=== PATIENT | female | born 1990 | race Caucasian/White ===

== ENCOUNTER 2023-11-28 05:35 | Emergency (ER) | payer OTHER ==
--- NOTE | 2023-11-28 05:39 | ERPHSYRPT ---
- History of Present Illness Time Seen by Provider: 11/28/23 05:38 Source: patient Exam Limitations: no limitations Physician History: This is a morbidly obese 33-year-old white female patient has had a dry nonproductive cough for over a month. Patient was seen at [facility] approximately 1 month ago and diagnosed with bronchitis. She received a prescription for albuterol inhaler only. Patient has not had a fever. She only experiences mild, brief shortness of breath during multiple coughing episodes. She denies nausea, vomiting and diarrhea. She denies chest pain. She denies chills. She has no abdominal pain Timing/Duration: week(s) (Over 4 weeks), other (Concerned because of the persistence of her symptoms) Cough Quality/Degree: mild, dry cough Possible Cause: occasional episodes Modifying Factors: Improves With: coughing Associated Symptoms: cough, sore throat, No fever, No chills, No chest pain/soreness, No facial pain, No headache, No muscle aches Allergies/Adverse Reactions: No Known Drug Allergies Allergy (Verified 11/28/23 06:01) Travel Risk - International Travel Have you traveled outside of the country in past 3 weeks: No - Coronavirus Screening Are you exhibiting any of the following symptoms?: Yes Symptoms: Cough: New Onset, Shortness of Breath Close contact with a COVID-19 positive Pt in past 14-21 Days: No - Review of Systems Constitutional: No Symptoms Eyes: No Symptoms Ears, Nose, & Throat: Throat Pain Respiratory: Cough Cardiac: No Symptoms Abdominal/Gastrointestinal: No Symptoms Genitourinary Symptoms: No Symptoms Musculoskeletal: No Symptoms Skin: No Symptoms Neurological: No Symptoms Psychological: No Symptoms Endocrine: No Symptoms Hematologic/Lymphatic: No Symptoms Immunological/Allergic: No Symptoms All Other Systems: Reviewed and Negative - Past Medical History Pertinent Past Medical History: Yes - Past Surgical History Past Surgical History: Yes - Nursing Vital Signs Nursing Vital Signs: Initial Vital Signs Temperature 97.6 F 11/28/23 06:02 Pulse Rate 91 H 11/28/23 06:02 Respiratory Rate 18 11/28/23 06:02 Blood Pressure 157/124 11/28/23 06:02 O2 Sat by Pulse Oximetry 97 11/28/23 06:02 Pain Scale Pain Intensity 0 - Physical Exam General Appearance: no apparent distress, alert, anxiety, obese Eye Exam: PERRL/EOMI, eyes nml inspection Ears, Nose, Throat Exam: normal ENT inspection, moist mucous membranes Neck Exam: normal inspection, non-tender, supple, full range of motion Respiratory Exam: normal breath sounds, lungs clear, airway intact, No chest tenderness, No respiratory distress Cardiovascular Exam: regular rate/rhythm, normal heart sounds, normal peripheral pulses Gastrointestinal/Abdomen Exam: soft, normal bowel sounds, No tenderness Pelvic Exam: not done Rectal Exam: not done Back Exam: normal inspection, normal range of motion, No CVA tenderness, No vertebral tenderness Extremity Exam: normal inspection, normal range of motion, pelvis stable Neurologic Exam: alert, oriented x 3, cooperative, steel placer II-XII nml as tested, normal mood/affect, nml cerebellar function, nml station & gait, sensation nml Skin Exam: normal color, warm, dry Lymphatic Exam: No adenopathy SpO2 Interpretation: normal O2 Delivery: Room Air - Course Nursing assessment & vital signs reviewed: Yes Ordered Tests: Medication Summary Discontinued Medications Generic Name Dose Route Start Last Admin Trade Name Wendy PRN Reason Stop Dose Admin Hydrocodone Bitart/Acetaminophen 10 ml 11/28/23 06:22 11/28/23 06:34 Hydrocodone/Acetaminophen 5 Ml Udcup PO 11/28/23 06:23 10 ml STAT STA Administration Hydrocodone Bitart/Acetaminophen Confirm 11/28/23 06:32 Hydrocodone/Acetaminophen 5 Ml Udcup Administered 11/28/23 06:33 Dose 10 ml .ROUTE .STK-MED ONE Methylprednisolone Sodium 0 mg 11/28/23 06:22 11/28/23 06:34 Succinate 125 mg/ Sterile IM 11/28/23 06:23 125 mg Water 2 ml STAT ONE Administration Methylprednisolone Sodium Succinate Confirm 11/28/23 06:32 Methylprednis Sod Succ 125 Mg/2 Ml Vial Administered 11/28/23 06:33 Dose 125 mg .ROUTE .STK-MED ONE Sterile Water Confirm 11/28/23 06:32 Water For Injection,Sterile 10 Ml Vial Administered 11/28/23 06:33 Dose 10 ml IJ .STK-MED ONE Lab/Rad Data: Laboratory Results 11/28/23 Range/Units 06:15 Influenza Type A Ag NEGATIVE (NEGATIVE) Influenza Type B Ag NEGATIVE (NEGATIVE) RSV (PCR) NEGATIVE (NEGATIVE) SARS-CoV-2 (PCR) NEGATIVE (NEGATIVE) Group A Strep Antibody NOT DETECTED (NEGATIVE) - Progress Progress: improved, re-examined Air Movement: good Progress Note: 11/28/23 06:30 This patient's medical issue is 1 of low complexity. The level of complexity and the workup performed is based on review of the patient's past medical history, review of the patient's medication list, review of the patient's drug allergy list, history of present illness and physical findings on examination. The workup in this patient includes viral swabs and group A strep swab. We will also provide the patient with 10 mL of oral hydrocodone/acetaminophen elixir as well as an intramuscular injection of 125 mg of Solu-Medrol. Blood Culture(s) Obtained: No Antibiotics given: No Counseled pt/family regarding: lab results, diagnosis, need for follow-up Medical Desision Making - Diagnostic Testing Diagnostic test were ordered, analyzed, and reviewed by me: Yes - Risk of complications The pt has a mod risk of morbidity or mortality based on: Need for prescription drug management - Departure Departure Disposition: Home Clinical Impression: Upper respiratory infection Condition: Stable Critical Care Time: No Referrals: YISSEL ALONZO [Primary Care Provider] - Follow up/PCP as directed Additional Instructions: Drink plenty of clear liquids. Avoid exposure to any type of smoke. Continue your albuterol inhaler as prescribed. Take your medication as prescribed. Follow-up with your primary care provider for further evaluation management and to obtain a follow-up appointment in next 5 to 7 days. Prescriptions: Prednisone 10 mg [Deltasone 10 mg] 10 mg PO TID #12 tablet Hydrocodone/Acetaminophen [Hydrocodone-Acetamn 7.5-325/15] 10 ml PO Q8H PRN #120 ml MDD 30 ml PRN Reason: Cough Azithromycin 250 mg [Zithromax 250 MG TABLET] 250 mg PO ZPACK #6 tablet
[2023-11-28 06:14] VITALS: RESP 18; TEMP 97.6
[2023-11-28] MEDS ORDERED: HYDROCODONE-ACETAMIN 2.5-108/5 ML SOLUTION PO STA (06:22)
[2023-11-28] MEDS ORDERED: solu-MEDROL 125 MG, Sterile H2O 10 ml 2 ML IM ONE ×2 (06:22)
[2023-11-28] MEDS ORDERED: Sterile H2O 10 ml IJ ONE (06:32)
[2023-11-28] MEDS ORDERED: solu-MEDROL ONE (06:32)
[2023-11-28] MEDS ORDERED: HYDROCODONE-ACETAMIN 2.5-108/5 ML SOLUTION ONE (06:32)
[2023-11-28 06:53] LABS: Group A Strep NOT DETECTED (NEGATIVE)
[2023-11-28 07:04] LABS: INFLUENZA A NEGATIVE (NEGATIVE); INFLUENZA B NEGATIVE (NEGATIVE); RESPIRATORY SYNCTIAL VIRUS NEGATIVE (NEGATIVE); SARS-CoV-2 Xpert Express NEGATIVE (NEGATIVE)
[2023-11-28 07:13] VITALS: BP 131/92; PULSE 89; O2SAT 96
== END 2023-11-28 07:26 | disposition home or self-care (01) ==
LOC: ED 05:35
DX: J06.9 Acute upper respiratory infection, unspecified (principal); R05.3 Chronic cough; Z79.891 Long term (current) use of opiate analgesic; Z79.52 Long term (current) use of systemic steroids
CPT/HCPCS: 0241U; 87651; 96372; 99283; J2930; A9270-GY

== ENCOUNTER 2024-03-10 19:17 | Emergency (ER) | payer OTHER ==
[2024-03-10 19:47] VITALS: RESP 14; TEMP 99
--- NOTE | 2024-03-10 20:06 | ERPHSYRPT ---
- History of Present Illness Time Seen by Provider: 03/10/24 19:46 Patient Subjective Stated Complaint: pt states she took her blood pressure and it was high Triage Nursing Assessment: pt ambulated into the er; pt is axo x4; c/o htn; pt states 2/10 pain to head; pt denies dizziness, LOC; pupils 3 mm and PERRL; clear heart tone; clear lung sounds in all lobes; hypertensive; tachycardic; skin PDW Physician History: 34-year-old female presents to our ED for "hypertension". Patient was at her home resting. Patient felt acutely nauseous. Patient checked her blood pres sure and found it to be elevated. Patient checked her blood pressure several times later and observed it to be significantly high. He got to the point where it was 200 systolic patient became concerned and came to our ED. Upon arrival to our ED patient states her nausea had resolved. No chest pain or shortness of breath. No nausea vomiting or diaphoresis. Patient concerned regarding her blood pressure. Patient reports that she is healthy. No history of hypertension. Patient is not on any prescription medications. Family friend at bedside. Patient voices no other complaints or concerns at this time. Portions of this note were created with voice recognition technology. There may be grammatical, spelling, punctuation or sound alike errors Timing/Duration: today Severity: moderate Associated Symptoms: nausea Allergies/Adverse Reactions: No Known Drug Allergies Allergy (Verified 03/10/24 19:34) Home Medications: Fluoxetine HCl 40 mg PO DAILY 03/10/24 [History] Gabapentin 100 mg PO DAILY 03/10/24 [History] Metformin HCl [Metformin HCl ER] 500 mg PO DAILY 03/10/24 [History] Omeprazole 40 mg PO DAILY 03/10/24 [History] Simvastatin 5 mg PO DAILY 03/10/24 [History] Hx Tetanus, Diphtheria Vaccination/Date Given: No Hx Influenza Vaccination/Date Given: No Hx Pneumococcal Vaccination/Date Given: No Immunizations Up to Date: No Travel Risk - International Travel Have you traveled outside of the country in past 3 weeks: No - Emerging Infectious Disease Are you exhibiting symptoms associated with any current EIDs: No - Review of Systems Constitutional: No Symptoms, No Fever, No Chills Eyes: No Symptoms Ears, Nose, & Throat: No Symptoms Respiratory: No Symptoms, No Cough, No Dyspnea Cardiac: No Symptoms, No Chest Pain, No Edema, No Syncope Abdominal/Gastrointestinal: No Symptoms, No Abdominal Pain, No Nausea, No Vomiting, No Diarrhea Genitourinary Symptoms: No Symptoms, No Dysuria Musculoskeletal: No Symptoms, No Back Pain, No Neck Pain Skin: No Symptoms, No Rash Neurological: No Symptoms, No Dizziness, No Focal Weakness, No Sensory Changes Psychological: No Symptoms Endocrine: No Symptoms Hematologic/Lymphatic: No Symptoms Immunological/Allergic: No Symptoms All Other Systems: Reviewed and Negative - Past Medical History Pertinent Past Medical History: Yes Neurological History: No Pertinent History ENT History: No Pertinent History Cardiac History: High Cholesterol Respiratory History: Bronchitis Endocrine Medical History: Other Musculoskeletal History: No Pertinent History GI Medical History: No Pertinent History History: No Pertinent History Psycho-Social History: Depression Female Reproductive Disorders: No Pertinent History Other Medical History: "pre diabetic". PCOS - Past Surgical History Past Surgical History: Yes Neuro Surgical History: No Pertinent History Cardiac: No Pertinent History Respiratory: No Pertinent History Gastrointestinal: Appendectomy Genitourinary: No Pertinent History Musculoskeletal: No Pertinent History Female Surgical History: No Pertinent History - Female History Hx Now: No - Social History Smoking Status: Current every day smoker How long have you smoked: 20yo Exposure to second hand smoke: Yes Drug Use: marijuana Patient Lives Alone: No - Nursing Vital Signs Nursing Vital Signs: Initial Vital Signs Pulse Rate 112 H 03/10/24 19:37 Blood Pressure 186/107 03/10/24 19:37 O2 Sat by Pulse Oximetry 98 03/10/24 19:37 Pain Scale Pain Intensity 2 - Physical Exam General Appearance: no apparent distress, alert Eye Exam: PERRL/EOMI, eyes nml inspection Ears, Nose, Throat Exam: normal ENT inspection, TMs normal, pharynx normal, moist mucous membranes Neck Exam: normal inspection, non-tender, supple, full range of motion Respiratory Exam: normal breath sounds, lungs clear, airway intact, No respirat ory distress Cardiovascular Exam: regular rate/rhythm, normal heart sounds, normal peripheral pulses Gastrointestinal/Abdomen Exam: soft, normal bowel sounds, No tenderness, No mass Back Exam: normal inspection, normal range of motion, No CVA tenderness, No vertebral tenderness Extremity Exam: normal inspection, normal range of motion, pelvis stable Neurologic Exam: alert, oriented x 3, cooperative, normal mood/affect, nml cerebellar function, nml station & gait, sensation nml, No motor deficits Skin Exam: normal color, warm, dry, No rash Lymphatic Exam: No adenopathy SpO2 Interpretation: normal SpO2: 99 O2 Delivery: Room Air - Course Nursing assessment & vital signs reviewed: Yes Ordered Tests: Active Orders 24 hr Category Date Time Status CBC W DIFF Stat Lab 03/10/24 20:05 Completed CMP Stat Lab 03/10/24 20:05 Completed TROPONIN Q4H Lab 03/10/24 20:05 Completed TROPONIN Q4H Lab 03/11/24 00:00 Ordered TROPONIN Q4H Lab 03/11/24 04:00 Ordered UA W/RFX UR CULTURE Stat Lab 03/10/24 19:50 Ordered Lab/Rad Data: Laboratory Result Diagrams 03/10/24 20:05 03/10/24 20:05 Laboratory Results 03/10/24 03/10/24 03/10/24 Range/Units 20:05 20:05 20:05 WBC 14.7 H (4.0-10.5) x10^3/uL RBC 5.50 H (4.1-5.4) x10^6/uL Hgb 14.4 (12.0-16.0) g/dL Hct 45.7 (35-47) % MCV 83.1 (78-100) fL MCH 26.2 (26-32) pg MCHC 31.5 L (32-36) g/dL RDW 14.2 H (11.5-14.0) % Plt Count 284 (150-450) x10^3/uL MPV 11.4 H (7.5-11.0) fL Gran % 77.2 H (36.0-66.0) % Immature Gran % (Auto) 0.3 (0.00-0.4) % Nucleat RBC Rel Count 0.0 (0.00-0.1) % Eos # (Auto) 0.25 (0-0.5) x10^3/uL Immature Gran # (Auto) 0.04 H (0.00-0.03) x10^3u/L Absolute Lymphs (auto) 2.22 (1.0-4.6) x10^3/uL Absolute Monos (auto) 0.75 (0.0-1.3) x10^3/uL Absolute Nucleated RBC 0.00 (0.00-0.01) x10^3u/L Lymphocytes % 15.1 L (24.0-44.0) % Monocytes % 5.1 (0.0-12.0) % Eosinophils % 1.7 (0.00-5.0) % Basophils % 0.6 (0.0-0.4) % Absolute Granulocytes 11.37 H (1.4-6.9) x10^3/uL Basophils # 0.09 (0-0.4) x10^3/uL Sodium 139 (135-145) mmol/L Potassium 4.6 (3.5-5.1) mmol/L Chloride 110 H (98-107) mmol/L Carbon Dioxide 21 L (22-30) mmol/L Anion Gap 13.2 (5-15) MEQ/L BUN 12 (7-17) mg/dL Creatinine 0.61 (0.52-1.04) mg/dL Estimated GFR 119.5 ML/MIN Glucose 152 H (74-106) mg/dL Calcium 9.8 (8.4-10.2) mg/dL Total Bilirubin 0.50 (0.2-1.3) mg/dL AST 25 (14-36) U/L ALT 24 (0-35) U/L Alkaline Phosphatase 78 (38-126) U/L Troponin I < 0.012 (0.000-0.033) ng/mL Serum Total Protein 7.2 (6.3-8.2) g/dL Albumin 3.8 (3.5-5.0) g/dL - Progress Progress: improved Progress Note: 03/10/24 21:07 33-year-old female presents to emergency department for evaluation of a bout of nausea. Patient checked her blood pressure and it was observed to be elevated. Patient reports a blood pressure of systolic 200 at home. No chest pain or shortness of breath. Preliminary lab workup reveals a normal troponin. Leukocytosis of 14,000 observed. We requested a urinalysis. Patient urinated while in our ED but the sample was not collected. Patient did not want to wait further for ongoing workup. Patient was hungry and stated she wanted to be discharged if she can eat. Patient left AMA. Portions of this note were created with voice recognition technology. There may be grammatical, spelling, punctuation or sound alike errors Complexity problem addressed is moderate acute complicated No critical care time Complexity of data reviewed and analyzed is moderate. Test ordered test reviewed results analyzed and correlated clinically for history and physical exam. Risk of complication and her risk morbidity/mortality patient management is low. Vital stable. Patient left AGAINST MEDICAL ADVICE. No social determinants of health present complaint follow-up. Portions of this note were created with voice recognition technology. There may be grammatical, spelling, punctuation or sound alike errors 03/10/24 21:07 Counseled pt/family regarding: lab results, diagnosis, need for follow-up - Departure Departure Disposition: AMA Clinical Impression: Hypertension, Leukocytosis Condition: Stable Critical Care Time: No Referrals: YISSEL ALONZO [Primary Care Provider] - Follow up/PCP as directed Instructions: High Blood Pressure (DC) Additional Instructions: Discharge/Care Plan ALEJO BROWN was seen on 03/10/24 in the Emergency Room. The patient was counseled regarding Diagnosis,Lab results, Imaging studies, need for follow up and when to return to the Emergency Room. Prescriptions given: Discharge Note I have spoken with the patient and/or caregivers. I have explained the patient's condition, diagnosis and treatment plan based on the information available to me at this time. I have answered the patient's and/or caregiver's questions and addressed any concerns. The patient and/or caregivers have as good understanding of the patient's diagnosis, condition and treatment plan as can be expected at this point. The vital signs have been stable. The patient's condition is stable and appropriate for discharge from the emergency department. The patient will pursue further outpatient evaluation with the primary care physician or other designated or consulting physician as outlined in the discharge instructions. The patient and/or caregivers are agreeable to this plan of care and follow-up instructions have been explained in detail. The patient and/or caregivers have received these instruction. The patient/and or caregivers are aware that any significant change in condition or worsening of symptoms should prompt an immediate return to this or the closest emergency department or call 911.
[2024-03-10 20:14] LABS: Absolute Neutrophil Ct (ANC) 11.37 x10^3/uL (1.4-6.9); BASOPHIL % 0.6 % (0.0-0.4); Basophil (Absolute #) 0.09 x10^3/uL (0-0.4); Eosinophil % 1.7 % (0.00-5.0); Eosinophil (Absolute #) 0.25 x10^3/uL (0-0.5); Hematocrit 45.7 % (35-47); Hemoglobin 14.4 g/dL (12.0-16.0); IMMATURE GRAN # 0.04 x10^3u/L (0.00-0.03); IMMATURE GRAN % 0.3 % (0.00-0.4); Lymphocyte (Absolute #) 2.22 x10^3/uL (1.0-4.6); Lymphocytes % 15.1 % (24.0-44.0); Mean Cell Volume 83.1 fL (78-100); Mean Corpuscular Hemoglobin 26.2 pg (26-32); Mean Corpuscular Hgb Concent. 31.5 g/dL (32-36); Mean Platelet Volume 11.4 fL (7.5-11.0); Monocyte (Absolute #) 0.75 x10^3/uL (0.0-1.3); Monocytes % 5.1 % (0.0-12.0); Neutrophil % 77.2 % (36.0-66.0); Platelet Count 284 x10^3/uL (150-450); Red Cell Distribution Width 14.2 % (11.5-14.0); White Blood Count 14.7 x10^3/uL (4.0-10.5)
[2024-03-10 20:32] LABS: ALBUMIN 3.8 g/dL (3.5-5.0); ANION GAP 13.2 MEQ/L (5-15); BILIRUBIN,TOTAL 0.5 mg/dL (0.2-1.3); Calcium 9.8 mg/dL (8.4-10.2); Creatinine 1 0.61 mg/dL (0.52-1.04); EST GLOMERULAR FILTRATION RATE 119.5 ML/MIN; Potassium 4.6 mmol/L (3.5-5.1); Total Protein 7.2 g/dL (6.3-8.2)
[2024-03-10 21:07] VITALS: BP 125/91; PULSE 90
[2024-03-10 21:11] VITALS: O2SAT 99
== END 2024-03-10 21:09 | disposition home or self-care (01) ==
LOC: ED 19:17
DX: I10 Essential (primary) hypertension (principal); D72.829 Elevated white blood cell count, unspecified; R11.0 Nausea; E78.5 Hyperlipidemia, unspecified; F17.200 Nicotine dependence, unspecified, uncomplicated; Z79.899 Other long term (current) drug therapy
CPT/HCPCS: 36415; 80053; 84484; 85025; 99283

== ENCOUNTER 2024-04-16 14:03 | Emergency (ER) | payer OTHER ==
[2024-04-16 14:32] VITALS: TEMP 96.2
[2024-04-16] MEDS ORDERED: XYLOCAINE 1% HCL 20 ML MDV ONE (14:37)
[2024-04-16] MEDS: XYLOCAINE 1% HCL 20 ML MDV IJ ONE (14:39)
--- NOTE | 2024-04-16 14:47 | ERPHSYRPT ---
- History of Present Illness Time Seen by Provider: 04/16/24 14:21 Source: patient Exam Limitations: no limitations Patient Subjective Stated Complaint: pt states she has a boil in her vagina Triage Nursing Assessment: pt ambulated into the er; pt is axo x4; c/o boil; pt states 10/10 pain to vagina; abscess present to left labia minora; no drainage present to abscess; no respiratory distress present; hypertensive Physician History: 33-year-old female presented in the ER with complaint of left labial/vaginal swelling/abscess for the last 3 to 4 days with progressive worsening. It started a small pea-sized and gradually increased to the size of a walnut. Moderate to severe sharp pain. No fever or chills reported. No history of MRSA. LMP 2 days ago Allergies/Adverse Reactions: No Known Drug Allergies Allergy (Verified 04/16/24 14:16) Home Medications: Metformin HCl [Metformin HCl ER] 500 mg PO DAILY 03/10/24 [History] Omeprazole 40 mg PO DAILY 03/10/24 [History] Simvastatin 5 mg PO DAILY 03/10/24 [History] Propranolol HCl 20 mg PO DAILY 04/16/24 [History] Hx Tetanus, Diphtheria Vaccination/Date Given: No Hx Influenza Vaccination/Date Given: No Hx Pneumococcal Vaccination/Date Given: No Travel Risk - International Travel Have you traveled outside of the country in past 3 weeks: No - Emerging Infectious Disease Are you exhibiting symptoms associated with any current EIDs: No - Review of Systems Constitutional: No Symptoms Ears, Nose, & Throat: No Symptoms Respiratory: No Symptoms Cardiac: No Symptoms Abdominal/Gastrointestinal: No Symptoms Musculoskeletal: No Symptoms Skin: Skin Lesions Neurological: No Symptoms - Past Medical History Pertinent Past Medical History: Yes Neurological History: No Pertinent History ENT History: No Pertinent History Cardiac History: High Cholesterol Respiratory History: Bronchitis Endocrine Medical History: Other Musculoskeletal History: No Pertinent History GI Medical History: No Pertinent History History: No Pertinent History Psycho-Social History: Depression Female Reproductive Disorders: No Pertinent History Other Medical History: "pre diabetic". PCOS - Past Surgical History Past Surgical History: Yes Neuro Surgical History: No Pertinent History Cardiac: No Pertinent History Respiratory: No Pertinent History Gastrointestinal: Appendectomy Genitourinary: No Pertinent History Musculoskeletal: No Pertinent History Female Surgical History: No Pertinent History - Female History Hx Now: No - Social History Smoking Status: Current every day smoker How long have you smoked: 20yo Exposure to second hand smoke: Yes Drug Use: marijuana Patient Lives Alone: No - Nursing Vital Signs Nursing Vital Signs: Initial Vital Signs Temperature 96.2 F 04/16/24 14:18 Pulse Rate 104 H 04/16/24 14:18 Respiratory Rate 22 04/16/24 14:18 Blood Pressure 164/100 04/16/24 14:18 O2 Sat by Pulse Oximetry 99 04/16/24 14:18 Pain Scale Pain Intensity 7 - Physical Exam General Appearance: no apparent distress, alert Eye Exam: PERRL/EOMI Neck Exam: normal inspection, full range of motion Respiratory Exam: normal breath sounds, lungs clear Cardiovascular Exam: regular rate/rhythm, normal heart sounds Gastrointestinal/Abdomen Exam: soft, normal bowel sounds, No tenderness Pelvic Exam: other (Left labial 3 x 2 cm swelling soft consistency, no fluctuation positive on the left upper end of labia.) Back Exam: normal inspection, normal range of motion Extremity Exam: normal inspection, normal range of motion Neurologic Exam: alert, oriented x 3, cooperative Skin Exam: normal color SpO2 Interpretation: normal SpO2: 99 O2 Delivery: Room Air Procedures - Incision and Drainage Time of Procedure: 14:44 Timeout: Performed Site: Left labia Anesthesia: 1% Lidocaine cc's of anesthesia: 5 Blade Size: 10 I & D Procedure: betadine prep, gauze wick placed Results: moderate amount pus Progress: Patient tolerated procedure very well. Ordered Tests: Active Orders 24 hr Category Date Time Status CULTURE,WOUND Stat Lab 04/16/24 15:20 Ordered Medication Summary Discontinued Medications Generic Name Dose Route Start Last Admin Trade Name Wendy PRN Reason Stop Dose Admin Lidocaine HCl 5 ml 04/16/24 14:36 04/16/24 14:39 Lidocaine Hcl 1% 20 Ml Mdv 20 Ml Ml IJ 04/16/24 14:37 5 ml STAT ONE Administration Lidocaine HCl Confirm 04/16/24 14:37 Lidocaine Hcl 1% 20 Ml Mdv 20 Ml Ml Administered 04/16/24 14:38 Dose 5 ml .ROUTE .STK-MED ONE Trimethoprim/Sulfamethoxazole 1 tab 04/16/24 15:04 04/16/24 15:05 Smz/Tmp Ds Tablet 1 Tablet PO 04/16/24 15:05 1 tab STAT STA Administration Trimethoprim/Sulfamethoxazole Confirm 04/16/24 15:07 Smz/Tmp Ds Tablet 1 Tablet Administered 04/16/24 15:08 Dose 1 tab PO .STK-MED ONE - Progress Progress: improved Progress Note: 04/16/24 14:44 33-year-old is evaluated for left labial/vaginal swelling. Patient has Bartholin cyst abscess. After informed consent incision and drainage was done. Recommended outpatient ASTRO TECHNICIAN follow-up. Recommended taking Tylenol ibuprofen. Discussed signs symptoms of worsening return to ER which she seems understanding. Counseled pt/family regarding: diagnosis Medical Desision Making - Risk of complications The pt has a mod risk of morbidity or mortality based on: Need for minor surgical intervention in patient with know risk factors - Departure Departure Disposition: Home Clinical Impression: Bartholin's gland abscess Condition: Stable Critical Care Time: No Referrals: YISSEL ALONZO [Primary Care Provider] - Follow up with PCP 1 day LOR BERNARD DO [ACTIVE STAFF] - Follow up other (Call for appointment for reevaluation) Instructions: Bartholin gland cyst Additional Instructions: Take Tylenol/ibuprofen as needed. Follow-up with primary care for reevaluation. Daily packing change. Return to ER for any worsening. Prescriptions: Ibuprofen 600 mg PO Q6HPRN PRN 10 Days #20 tablet PRN Reason: Pain Smz/Tmp Ds Tablet [Bactrim Ds Tablet] 1 udtab PO BID #14 tablet
[2024-04-16] MEDS: BACTRIM DS TABLET PO STA (15:05)
[2024-04-16 15:06] VITALS: BP 141/94; PULSE 73; RESP 18
[2024-04-16 15:07] VITALS: O2SAT 99
[2024-04-16] MEDS ORDERED: BACTRIM DS TABLET PO ONE (15:07)
== END 2024-04-16 15:26 | disposition home or self-care (01) ==
LOC: ED 14:03
DX: N75.1 Abscess of Bartholin's gland (principal); E78.5 Hyperlipidemia, unspecified; Z79.84 Long term (current) use of oral hypoglycemic drugs; Z79.899 Other long term (current) drug therapy; Z72.0 Tobacco use
CPT/HCPCS: 56420; 87070; 99283; A9270-GY